=== PATIENT | female | born 1960 | race Caucasian/White ===

== ENCOUNTER → 2016-06-04 | Outpatient (REF) | payer OTHER | LOC: M SFHCLERA 14:57 | PROVIDERS: ATTEND Family Medicine | DX: R94.6 Abnormal results of thyroid function studies (principal) ==

== ENCOUNTER → 2016-07-11 | Outpatient (REF) | payer OTHER | LOC: M LAB REF 10:18 | PROVIDERS: ATTEND Family Medicine | DX: R94.6 Abnormal results of thyroid function studies (principal) ==

== ENCOUNTER → 2016-08-26 | Outpatient (REF) | payer OTHER | LOC: M SFHCLERA 11:42 | PROVIDERS: ATTEND Physician Assistant | DX: J02.9 Acute pharyngitis, unspecified (principal) ==

== ENCOUNTER → 2016-12-31 | Outpatient (REF) | payer OTHER ==
[~2016-12-31] MED LIST: LEVO25TA5 PO; LISI-538 PO; LOSA25TA8 PO; PANT40TA2 PO; SERT-138 PO; SIMV40TA2 PO; VITATAB11 PO; WELLTAB40 PO
[2017-01-01 12:07] LABS: VITAMIN B12 LEVEL 306 PG/ML (247-911)
== END ==
LOC: M SFHCLERA 16:29
PROVIDERS: ATTEND Family Medicine
DX: E53.8 Deficiency of other specified B group vitamins (principal); M25.531 Pain in right wrist; M25.532 Pain in left wrist

== ENCOUNTER → 2016-12-31 | Outpatient (CLI) | payer OTHER ==
--- NOTE | 2016-12-31 19:15 | REP ---
LEFT SHOULDER, THREE VIEWS: HISTORY: Rotator cuff disorder There is no acute fracture or dislocation. There is narrowing of the acromioclavicular joint space. IMPRESSION: Degenerative change as described above. Signed by Ovidio Benavidez MD 01/01/2017 08:29 A
== END ==
LOC: M LRY 16:32
PROVIDERS: ATTEND Family Medicine
DX: M67.912 Unspecified disorder of synovium and tendon, left shoulder (principal)

== ENCOUNTER → 2017-03-12 | Outpatient (CLI) | payer OTHER ==
--- NOTE | 2017-03-12 16:55 | REPMRS ---
Patient History The patient states she has not had a clinical breast exam in over a year. Patient is postmenopausal. No known family history of cancer. Digital Woman Screen Mammo: March 12, 2017 - Exam #: [id number] Bilateral CC and MLO view(s) were taken. Technologist: Clara Kiser, Technologist Prior study comparison: January 2016, digital bilateral screening mammo, performed at [facility]. FINDINGS: There are scattered fibroglandular densities. There has been no change in the appearance of the mammogram from the prior studies. There is a mild amount of residual fibroglandular tissue which is fairly symmetric. There is no interval development of dominant mass, architectural distortion, or clustered microcalcification suggestive of malignancy. ASSESSMENT: BI-RADS/ACR category 1 mammogram. Negative. Recommendation Routine screening mammogram in 1 year (for women over age 40). This mammogram was interpreted with the aid of an FDA-approved computer-aided dectection system. Electronically Signed By: Raman Quinones MD 03/12/17 [id number]
== END ==
LOC: M WHC 14:19
PROVIDERS: ATTEND Family Medicine
DX: Z12.31 Encounter for screening mammogram for malignant neoplasm of breast (principal); Z78.0 Asymptomatic menopausal state

== ENCOUNTER → 2017-03-12 | Outpatient (REF) | payer OTHER | LOC: M SFHCWAGY 14:54 | PROVIDERS: ATTEND Family Medicine | DX: Z12.4 Encounter for screening for malignant neoplasm of cervix (principal) ==

== ENCOUNTER → 2017-05-03 | Outpatient (REF) | payer OTHER ==
[2017-05-03 20:38] LABS: MEAN CORPUSCULAR HGB CONC 31.7 g/dl (32.0-36.5); MEAN CORPUSCULAR VOLUME 94.5 fl (80.0-96.0); PLATELET COUNT, AUTOMATED 293 10^3/uL (150-450); RED CELL DISTRIBUTION WIDTH 14.1 % (11.5-14.5); WHITE BLOOD COUNT 5.5 10^3/uL (4.0-10.0)
[2017-05-03 21:10] LABS: ALBUMIN 4.3 GM/DL (3.2-5.2); ALBUMIN/GLOBULIN RATIO 1.19 (1.00-1.93); ALKALINE PHOSPHATASE 121 U/L (45-117); ALT/SGPT 35 U/L (12-78); ANION GAP 7 MEQ/L (8-16); AST/SGOT 25 U/L (7-37); BILIRUBIN,TOTAL 0.2 MG/DL (0.2-1.0); BLOOD UREA NITROGEN 13 MG/DL (7-18); CALCIUM LEVEL 9.4 MG/DL (8.5-10.1); CARBON DIOXIDE LEVEL 30 MEQ/L (21-32); CHLORIDE LEVEL 104 MEQ/L (98-107); CREATININE FOR GFR 1.01 MG/DL (0.55-1.02); GLOMERULAR FILTRATION RATE > 60.0 (>51); GLUCOSE, FASTING 90 MG/DL (70-105); MAGNESIUM LEVEL 2.4 MG/DL (1.8-2.4); POTASSIUM SERUM 4.6 MEQ/L (3.5-5.1); SODIUM LEVEL 141 MEQ/L (136-145); TOTAL PROTEIN 7.9 GM/DL (6.4-8.2)
== END ==
LOC: M SFHCLERA 16:43
PROVIDERS: ATTEND Family Medicine
DX: I10 Essential (primary) hypertension (principal); K21.9 Gastro-esophageal reflux disease without esophagitis; E03.9 Hypothyroidism, unspecified; E55.9 Vitamin D deficiency, unspecified

== ENCOUNTER → 2017-07-05 | Outpatient (REF) | payer OTHER | LOC: M SFHCLERA 15:52 | DX: E03.9 Hypothyroidism, unspecified (principal) ==

== ENCOUNTER → 2017-08-09 | Outpatient (REF) | payer OTHER | LOC: M SFHCLERA 15:45 | DX: E03.9 Hypothyroidism, unspecified (principal) | CPT/HCPCS: 84443 ==

== ENCOUNTER → 2017-11-04 | Outpatient (REF) | payer OTHER | LOC: M SFHCLERA 17:15 | DX: R23.2 Flushing (principal) ==

== ENCOUNTER → 2017-12-06 | Outpatient (REF) | payer OTHER ==
[2017-12-06 20:07] LABS: TOTAL 25(OH) VITAMIN D 27.3 NG/ML (30.0-100.0)
== END ==
LOC: M SFHCLERA 16:50
DX: E55.9 Vitamin D deficiency, unspecified (principal)

== ENCOUNTER → 2018-04-20 | Outpatient (CLI) | payer OTHER ==
[2018-04-20 20:15] LABS: HEMATOCRIT 35.9 % (36.0-47.0); HEMOGLOBIN 11.6 g/dl (12.0-15.5); MEAN CORPUSCULAR HGB CONC 32.3 g/dl (32.0-36.5); MEAN CORPUSCULAR VOLUME 92.8 fl (80.0-96.0); PLATELET COUNT, AUTOMATED 244 10^3/uL (150-450); RED BLOOD COUNT 3.87 10^6/uL (4.00-5.40); RED CELL DISTRIBUTION WIDTH 13.1 % (11.5-14.5); WHITE BLOOD COUNT 4.8 10^3/uL (4.0-10.0)
[2018-04-20 20:18] LABS: APPEARANCE, URINE CLEAR (CLEAR); BACTERIA, URINE AUTO NEGATIVE (NEGATIVE); BILIRUBIN, URINE AUTO NEGATIVE (NEGATIVE); BLOOD, URINE BLOOD 1+ (NEGATIVE); COLOR, URINE STRAW (YELLOW); GLUCOSE, URINE (UA) AUTO NEGATIVE (NEGATIVE); KETONE, URINE AUTO NEGATIVE (NEGATIVE); LEUKOCYTE ESTERASE, URINE AUTO TRACE (NEGATIVE); NITRITE, URINE AUTO NEGATIVE (NEGATIVE); PROTEIN, URINE AUTO NEGATIVE (NEGATIVE); RBC, URINE AUTO 0 /HPF (0-3); SPECIFIC GRAVITY URINE AUTO 1.003 (1.002-1.035); SQUAMOUS EPITHELIAL CELL UR AU 0 /HPF (0-6); UROBILINOGEN, URINE AUTO 0.2 mg/dL (0.0-2.0); WBC, URINE AUTO 2 /HPF (0-3)
[2018-04-20 20:28] LABS: ALBUMIN 3.8 GM/DL (3.2-5.2); ALBUMIN/GLOBULIN RATIO 1.19 (1.00-1.93); ALKALINE PHOSPHATASE 100 U/L (45-117); ALT/SGPT 28 U/L (12-78); ANION GAP 7 MEQ/L (8-16); AST/SGOT 23 U/L (7-37); BILIRUBIN,TOTAL < 0.1 MG/DL (0.2-1.0); BLOOD UREA NITROGEN 12 MG/DL (7-18); CALCIUM LEVEL 8.6 MG/DL (8.5-10.1); CARBON DIOXIDE LEVEL 29 MEQ/L (21-32); CHLORIDE LEVEL 106 MEQ/L (98-107); CREATININE FOR GFR 0.99 MG/DL (0.55-1.30); GLOMERULAR FILTRATION RATE > 60.0 (>51); GLUCOSE, FASTING 89 MG/DL (70-100); POTASSIUM SERUM 4.1 MEQ/L (3.5-5.1); SODIUM LEVEL 142 MEQ/L (136-145)
== END ==
LOC: M LRY 15:57
DX: M65.312 Trigger thumb, left thumb (principal)
CPT/HCPCS: 84443

== ENCOUNTER → 2018-04-21 | Outpatient (REF) | payer OTHER | LOC: M SFHCLERA 10:33 | DX: R82.90 Unspecified abnormal findings in urine (principal) ==

== ENCOUNTER → 2018-05-27 | Outpatient (CLI) | payer OTHER ==
[~2018-05-27] MED LIST changes: +LOSA25TA14 PO; -LOSA25TA8 PO; -PANT40TA2 PO; +PANT40TA3 PO
--- NOTE | 2018-05-27 17:04 | REPMRS ---
Patient History The patient states she has not had a clinical breast exam in over a year. Patient is postmenopausal. No known family history of cancer. No Hormone Replacement Therapy Digital Woman Screen Mammo: May 27, 2018 - Exam #: [id number] Bilateral CC and MLO view(s) were taken. Technologist: Clara Kiser, Technologist Prior study comparison: March 12, 2017, digital woman screen mammo performed at [facility]. January 2016, digital bilateral screening mammo, performed at [facility]. December 06, 2014, bilateral digital woman screen mammo, performed at [facility]. FINDINGS: There are scattered fibroglandular densities. There has been no change in the appearance of the mammogram from the prior studies. There is a mild amount of scattered fibroglandular density which is fairly symmetric. There is no interval development of dominant mass, architectural distortion, or clustered microcalcification suggestive of malignancy. 3-D tomosynthesis shows no additional findings. Assessment: BI-RADS/ACR category 1 mammogram. Negative. Recommendation Routine screening mammogram of both breasts in 1 year (for women over age 40). This patient's Lifetime Breast Cancer RIsk is estimated at 9.9 %. This mammogram was interpreted with the aid of an FDA-approved computer-aided dectection system. Electronically Signed By: Dariel Mejia MD 05/27/18 [id number]
== END ==
LOC: M WHC 15:23
PROVIDERS: ATTEND Family Medicine
DX: Z12.31 Encounter for screening mammogram for malignant neoplasm of breast (principal); Z78.0 Asymptomatic menopausal state

== ENCOUNTER → 2018-05-27 | Outpatient (REF) | payer OTHER | LOC: M SFHCWAGY 15:29 | PROVIDERS: ATTEND Family Medicine | DX: Z12.4 Encounter for screening for malignant neoplasm of cervix (principal) ==

== ENCOUNTER → 2018-06-14 | Outpatient (REF) | payer OTHER ==
[2018-06-14 20:26] LABS: BASO # 0.1 10^3/uL (0.0-0.2); BASO % 1.1 % (0.0-1.0); EOS # 0.1 10^3/uL (0.0-0.50); EOS % 1.8 % (0.0-3.0); HEMATOCRIT 37.3 % (36.0-47.0); HEMOGLOBIN 11.9 g/dl (12.0-15.5); LYMPH # 1.7 10^3/uL (1.5-4.5); LYMPH % 29.8 % (24.0-44.0); MEAN CORPUSCULAR HEMOGLOBIN 29.5 pg (27.0-33.0); MEAN CORPUSCULAR HGB CONC 31.9 g/dl (32.0-36.5); MEAN CORPUSCULAR VOLUME 92.6 fl (80.0-96.0); MONO # 0.5 10^3/uL (0.0-0.8); MONO % 8.6 % (0.0-5.0); NEUTROPHILS # 3.3 10^3/uL (1.8-7.7); NEUTROPHILS % 58.5 % (36.0-66.0); PLATELET COUNT, AUTOMATED 268 10^3/uL (150-450); RED BLOOD COUNT 4.03 10^6/uL (4.00-5.40); WHITE BLOOD COUNT 5.7 10^3/uL (4.0-10.0)
[2018-06-14 20:29] LABS: APPEARANCE, URINE CLEAR (CLEAR); BACTERIA, URINE AUTO 1+ (NEGATIVE); BILIRUBIN, URINE AUTO NEGATIVE (NEGATIVE); BLOOD, URINE BLOOD NEGATIVE (NEGATIVE); COLOR, URINE STRAW (YELLOW); GLUCOSE, URINE (UA) AUTO NEGATIVE (NEGATIVE); KETONE, URINE AUTO NEGATIVE (NEGATIVE); LEUKOCYTE ESTERASE, URINE AUTO 2+ (NEGATIVE); NITRITE, URINE AUTO NEGATIVE (NEGATIVE); PROTEIN, URINE AUTO NEGATIVE (NEGATIVE); RBC, URINE AUTO 1 /HPF (0-3); SPECIFIC GRAVITY URINE AUTO 1.003 (1.002-1.035); SQUAMOUS EPITHELIAL CELL UR AU 0 /HPF (0-6); UROBILINOGEN, URINE AUTO 0.2 mg/dL (0.0-2.0); WBC, URINE AUTO 11 /HPF (0-3)
[2018-06-14 20:34] LABS: CHOLESTEROL RISK RATIO 3.91 (<5)
== END ==
LOC: M SFHCLERA 16:57
PROVIDERS: ATTEND Family Medicine
DX: E78.5 Hyperlipidemia, unspecified (principal); D64.9 Anemia, unspecified; R82.90 Unspecified abnormal findings in urine

== ENCOUNTER → 2018-12-12 | Outpatient (REF) | payer OTHER ==
[2018-12-12 21:02] LABS: CALCIUM LEVEL 9.5 MG/DL (8.5-10.1); CREATININE FOR GFR 1.05 MG/DL (0.55-1.30); GLOMERULAR FILTRATION RATE 57.1 (>51); POTASSIUM SERUM 4.2 MEQ/L (3.5-5.1); THYROID STIMULATING HORMONE 2.38 uIU/ML (0.358-3.740)
== END ==
LOC: M SFHCLERA 16:48
PROVIDERS: ATTEND Family Medicine
DX: I10 Essential (primary) hypertension (principal); E03.9 Hypothyroidism, unspecified

== ENCOUNTER → 2019-06-02 | Outpatient (CLI) | payer OTHER ==
[~2019-06-02] MED LIST changes: -SIMV40TA2 PO; +SIMV40TA20 PO
--- NOTE | 2019-06-02 17:49 | REPMRS ---
Patient History The patient states she has not had a clinical breast exam in over a year. No known family history of cancer. No Hormone Replacement Therapy Digital Woman Screen Mammo: June 02, 2019 - Exam #: [id number] Bilateral CC and MLO view(s) were taken. Technologist: [place] Marc, Technologist Prior study comparison: May 27, 2018, bilateral digital woman screen mammo performed at [facility]. March 12, 2017, digital woman screen mammo performed at [facility]. FINDINGS: There are scattered fibroglandular densities. There has been no change in the appearance of the mammogram from the prior studies. There is a mild amount of scattered fibroglandular density which is fairly symmetric. There is no interval development of dominant mass, architectural distortion, or grouped microcalcification suggestive of malignancy. 3-D tomosynthesis shows no additional findings. Assessment: BI-RADS/ACR category 1 mammogram. Negative Mammogram. Recommendation Routine screening mammogram of both breasts in 1 year (for women over age 40). This patient's Lifetime Breast Cancer Risk is estimated at 9.6 %. This mammogram was interpreted with the aid of an FDA-approved computer-aided dectection system. Electronically Signed By: Dariel Mejia MD 06/02/19 [id number]
== END ==
LOC: M WHC 14:45
PROVIDERS: ATTEND Family Medicine
DX: Z12.31 Encounter for screening mammogram for malignant neoplasm of breast (principal)

== ENCOUNTER → 2019-11-02 | Outpatient (CLI) | payer OTHER ==
--- NOTE | 2019-11-03 01:53 | REPPI ---
Clinical: Tendonitis. Technique: Internal rotation, external rotation, and Y view of the left shoulder. Findings: Very minimal cortical irregularity at the acromioclavicular joint is appreciated. The glenohumeral joint appears intact and relatively age-appropriate. The subacromial space is normal. Surrounding soft tissues are unremarkable. No periarticular calcifications or loose bodies are identified. Impression: Essentially age-appropriate left shoulder radiographs. Electronically Signed by Jose Antonio Austin MD 11/03/2019 01:44 A
== END ==
LOC: M PLAIMG 14:54
PROVIDERS: ATTEND Family Medicine
DX: M75.82 Other shoulder lesions, left shoulder (principal)

== ENCOUNTER → 2019-11-02 | Outpatient (REF) | payer OTHER | LOC: M SFHCLERA 14:52 | PROVIDERS: ATTEND Family Medicine | DX: E03.9 Hypothyroidism, unspecified (principal) ==

== ENCOUNTER → 2019-11-13 | Outpatient (CLI) | payer OTHER ==
[~2019-11-13] MED LIST changes: +PANT40TA29 PO; -PANT40TA3 PO
== END ==
LOC: M LABSMTC 12:07
PROVIDERS: ATTEND Orthopaedic Surgery
DX: Z03.818 Encounter for observation for suspected exposure to other biological agents ruled out (principal); Z11.59 Encounter for screening for other viral diseases

== ENCOUNTER → 2020-07-19 | Outpatient (CLI) | payer OTHER ==
[~2020-07-19] MED LIST changes: -LISI-538 PO; +LISI20TA33 PO
== END ==
LOC: M WHC 14:46
PROVIDERS: ATTEND Nurse Practitioner Family
DX: Z53.9 Procedure and treatment not carried out, unspecified reason (principal); Z12.31 Encounter for screening mammogram for malignant neoplasm of breast

== ENCOUNTER → 2020-08-16 | Outpatient (CLI) | payer OTHER ==
--- NOTE | 2020-08-16 16:40 | REPMRS ---
Patient History The patient states she had a clinical breast exam in June 2020. No known family history of cancer. No Hormone Replacement Therapy Digital Woman Screen Mammo: August 16, 2020 - Exam #: [id number] Bilateral CC and MLO view(s) were taken. Technologist: Amanda Avila Technologist Prior study comparison: June 02, 2019, bilateral digital woman screen mammo performed at [facility]. May 27, 2018, bilateral digital woman screen mammo performed at [facility]. March 12, 2017, digital woman screen mammo performed at [facility]. FINDINGS: There are scattered fibroglandular densities. The Volpara volumetric breast density category is:B. There has been no change in the appearance of the mammogram from the prior studies. There is a mild amount of scattered fibroglandular density which is fairly symmetric. There is no interval development of dominant mass, architectural distortion, or grouped microcalcification suggestive of malignancy. 3-D tomosynthesis shows no additional findings. Assessment: BI-RADS/ACR category 1 mammogram. Negative Mammogram. Recommendation Routine screening mammogram of both breasts in 1 year (for women over age 40). This patient's [facility] Lifetime Breast Cancer Risk is estimated at 9.3 %. This mammogram was interpreted with the aid of an FDA-approved computer-aided dectection system. Electronically Signed By: Dariel Mejia MD 08/16/20 [id number]
== END ==
LOC: M WHC 15:57
PROVIDERS: ATTEND Nurse Practitioner Family
DX: Z12.31 Encounter for screening mammogram for malignant neoplasm of breast (principal)

== ENCOUNTER → 2020-12-09 | Outpatient (CLI) | payer OTHER ==
[2020-12-09 17:53] LABS: EOS # 0.1 10^3/uL (0.0-0.5); EOS % 2.7 % (0.0-3.0); HEMATOCRIT 34.8 % (36.0-47.0); LYMPH # 1.6 10^3/uL (1.5-5.0); MEAN CORPUSCULAR HEMOGLOBIN 29.9 pg (27.0-33.0); MEAN CORPUSCULAR HGB CONC 31.6 g/dl (32.0-36.5); MEAN CORPUSCULAR VOLUME 94.6 fl (80.0-96.0); MONO # 0.5 10^3/uL (0.0-0.8); MONO % 11.1 % (2.0-8.0); NEUTROPHILS # 1.9 10^3/uL (1.5-8.5); NEUTROPHILS % 46.2 % (36.0-66.0); PLATELET COUNT, AUTOMATED 231 10^3/uL (150-450); RED BLOOD COUNT 3.68 10^6/uL (4.00-5.40); WHITE BLOOD COUNT 4.2 10^3/uL (4.0-10.0)
[2020-12-09 18:27] LABS: ALBUMIN 3.5 GM/DL (3.2-5.2); ALT/SGPT 36 U/L (12-78); BILIRUBIN,TOTAL 0.2 MG/DL (0.2-1.0); BLOOD UREA NITROGEN 20 MG/DL (7-18); CALCIUM LEVEL 9.3 MG/DL (8.8-10.2); CARBON DIOXIDE LEVEL 28 MEQ/L (21-32); CHLORIDE LEVEL 107 MEQ/L (98-107); CHOLESTEROL LEVEL 190 MG/DL (<200); CREATININE FOR GFR 0.94 MG/DL (0.55-1.30); FREE T4 0.89 NG/DL (0.76-1.46); GLOMERULAR FILTRATION RATE > 60.0 (>45); GLUCOSE, FASTING 164 MG/DL (70-100); HDL CHOLESTEROL 50 MG/DL (>40); LDL CHOLESTEROL 111 MG/DL (<100); NON-HDL-C 140 MG/DL; POTASSIUM SERUM 4.2 MEQ/L (3.5-5.1); SODIUM LEVEL 140 MEQ/L (136-145); THYROID STIMULATING HORMONE 0.747 uIU/ML (0.358-3.740); TOTAL PROTEIN 6.6 GM/DL (6.4-8.2); TRIGLYCERIDES LEVEL 147 MG/DL (<150)
[2020-12-09 18:30] LABS: FOLATE 9.6 NG/ML; TOTAL 25(OH) VITAMIN D 39.5 NG/ML (30.0-100.0); VITAMIN B12 LEVEL > 2000 PG/ML
== END ==
LOC: M PLALAB 15:04
PROVIDERS: ATTEND Student in an Organized Health Care Education/Training Program
DX: E03.9 Hypothyroidism, unspecified (principal); E53.8 Deficiency of other specified B group vitamins; E55.9 Vitamin D deficiency, unspecified; D50.9 Iron deficiency anemia, unspecified

== ENCOUNTER → 2022-04-21 | Outpatient (CLI) | payer BC, OTHER ==
[~2022-04-21] MED LIST changes: +BUPR-289 PO; +BUPR300T92 PO; +FERR1TAB8 PO; +LEXA1TAB2 PO; +LOSA25TA13 PO; -LOSA25TA14 PO
== END ==
LOC: M LABSMTC 09:56
PROVIDERS: ATTEND Anesthesiology
DX: Z01.812 Encounter for preprocedural laboratory examination (principal); Z11.52 Encounter for screening for COVID-19

== ENCOUNTER 2022-04-24 07:33 | Day surgery (SDC) | payer BC ==
[~2022-04-24] VITALS: Ht 157.5 cm; Wt 69.9 kg
[~2022-04-24 07:33] MED LIST changes: +NS 1,000 ML IV ONE
[2022-04-24] MEDS ORDERED: propofoL 500 MG/50 ML VIAL As Ordered ONE (08:21)
[2022-04-24] MEDS ORDERED: LIDOCAINE 2% 100MG/5ML SDV (FOR ANES.) As Ordered ONE (08:24)
[2022-04-24 09:11] VITALS: BP 133/76
== END 2022-04-24 09:30 | disposition home or self-care (01) ==
LOC: M OPP 07:33
PROVIDERS: ATTEND Internal Medicine Gastroenterology
DX: Z12.11 Encounter for screening for malignant neoplasm of colon (principal); Z86.010 Personal history of colon polyps; D12.2 Benign neoplasm of ascending colon; D12.5 Benign neoplasm of sigmoid colon; I10 Essential (primary) hypertension; E78.00 Pure hypercholesterolemia, unspecified; E03.9 Hypothyroidism, unspecified; F32.9 Major depressive disorder, single episode, unspecified; F41.9 Anxiety disorder, unspecified; M19.90 Unspecified osteoarthritis, unspecified site; Z79.02 Long term (current) use of antithrombotics/antiplatelets; Z79.899 Other long term (current) drug therapy; Z88.1 Allergy status to other antibiotic agents; Z88.8 Allergy status to other drugs, medicaments and biological substances; Z80.1 Family history of malignant neoplasm of trachea, bronchus and lung

== ENCOUNTER → 2022-09-09 | Outpatient (CLI) | payer BC ==
[~2022-09-09] MED LIST changes: -NS 1,000 ML IV ONE; +PROHANCE 279.3MG/ML 5ML VIAL ONE
== END ==
LOC: M PLAIMG 07:56
PROVIDERS: ATTEND Nurse Practitioner
DX: R93.89 Abnormal findings on diagnostic imaging of other specified body structures (principal); N88.9 Noninflammatory disorder of cervix uteri, unspecified
CPT/HCPCS: 72197; A9576

== ENCOUNTER 2024-02-03 11:26 | Day surgery (SDC) | payer BC ==
[~2024-02-03] VITALS: Ht 157.5 cm; Wt 73.8 kg
[~2024-02-03 11:26] MED LIST changes: +BUPR-597 PO; -BUPR300T92 PO; +DESV50TA3 PO; -PROHANCE 279.3MG/ML 5ML VIAL ONE
[2024-02-03] MEDS: NS 1,000 ML IV ONE (12:13)
[2024-02-03] MEDS ORDERED: propofoL 200 MG/20 ML VIAL As Ordered ONE (13:07)
[2024-02-03] MEDS ORDERED: LIDOCAINE 2% 100MG/5ML SDV (FOR ANES.) As Ordered ONE (13:07)
[2024-02-03 13:55] VITALS: TEMP 97.4
[2024-02-03 14:10] VITALS: BP 154/71; O2SAT 99
== END 2024-02-03 14:10 | disposition home or self-care (01) ==
LOC: M OPP 11:26
PROVIDERS: ATTEND Internal Medicine Gastroenterology
DX: K44.9 Diaphragmatic hernia without obstruction or gangrene (principal); K21.9 Gastro-esophageal reflux disease without esophagitis; R12 Heartburn; Z79.02 Long term (current) use of antithrombotics/antiplatelets; Z79.890 Hormone replacement therapy; Z79.899 Other long term (current) drug therapy; Z88.1 Allergy status to other antibiotic agents; Z88.8 Allergy status to other drugs, medicaments and biological substances

== ENCOUNTER 2025-04-18 11:37 | Day surgery (SDC) | payer BC ==
[~2025-04-18] VITALS: Ht 157.5 cm; Wt 73.2 kg
[~2025-04-18 11:37] MED LIST changes: -BUPR-597 PO; +BUPR-766 PO; +DESV100T3 PO; +LEVO75TA4 PO; +LOSA50TA28 PO; +PREG100C2 PO; +PROP10TA56 PO; +TRAZ-257 PO
[2025-04-18 12:04] LABS: PLATELET COUNT, AUTOMATED 259 10^3/uL (150-450)
[2025-04-18] MEDS: LR 1,000 ML IV SCH (12:15)
[2025-04-18] MEDS: SCOPOLAMINE 1MG TRANSDERMAL PATCH TOP ONE (12:59)
[2025-04-18] MEDS ORDERED: ONDANSETRON 4MG/2ML VIAL As Ordered ONE (13:54)
[2025-04-18] MEDS ORDERED: dexAMETHasone 4 MG/ML 1 ML VIAL As Ordered ONE (13:54)
[2025-04-18] MEDS ORDERED: LIDOCAINE 2% 100 MG/5 ML SDV (FOR ANES.) As Ordered ONE (13:54)
[2025-04-18] MEDS ORDERED: MIDAZOLAM INJ 2 MG/2 ML VIAL As Ordered ONE (13:55)
[2025-04-18] MEDS ORDERED: ACETAMINOPHEN 1000MG/100ML IV BAG As Ordered ONE (14:24)
[2025-04-18 15:40] VITALS: BP 146/79; TEMP 98.5; O2SAT 98
== END 2025-04-18 16:25 | disposition home or self-care (01) ==
LOC: M SDC 11:37
PROVIDERS: ATTEND Student in an Organized Health Care Education/Training Program
DX: N95.0 Postmenopausal bleeding (principal); N84.0 Polyp of corpus uteri; Z98.51 Tubal ligation status; I12.9 Hypertensive chronic kidney disease with stage 1 through stage 4 chronic kidney disease, or unspecified chronic kidney disease; N18.30 Chronic kidney disease, stage 3 unspecified; D63.1 Anemia in chronic kidney disease; E03.9 Hypothyroidism, unspecified; E78.00 Pure hypercholesterolemia, unspecified; G47.30 Sleep apnea, unspecified; Z79.899 Other long term (current) drug therapy; Z79.890 Hormone replacement therapy; K21.9 Gastro-esophageal reflux disease without esophagitis; Z88.1 Allergy status to other antibiotic agents; Z88.8 Allergy status to other drugs, medicaments and biological substances; Z90.49 Acquired absence of other specified parts of digestive tract
CPT/HCPCS: 36415; 58558; 85027; 86850; 86900; 86901; 88305; 93005; J0131; J1100; J2250; J2405; J3010